=== PATIENT | male | born 1965 | race American Indian/Alaskan Native ===

== ENCOUNTER 2020-08-25 01:53 | Emergency (ER) | payer SELFPAY ==
[2020-08-25] MEDS ORDERED: IBUPROFEN 600 MG TAB PO ONE ×2 (02:56→03:11)
[2020-08-25] MEDS ORDERED: AMOXICILLIN/K CLAV 875/125MG TAB PO ONE (02:56)
[2020-08-25] MEDS ORDERED: RABIES IMMUNE GLOBULIN P/F 300 UNIT/ML INJ 5 ML IM ONE (02:56)
[2020-08-25] MEDS ORDERED: NEOMY 3.5 MG/BACIT 400 UNITS/POLY B 5000 UNITS/GM OINT PACKET TP ONE ×2 (02:56→03:11)
[2020-08-25] MEDS ORDERED: RABIES VACCINE, HUMAN DIPLOID/PF 2.5 UNIT/ML VIAL IM ONE (02:57)
[2020-08-25] MEDS ORDERED: TETANUS,DIPH,PERTUSS(ACELL) VACCINE 0.5 ML SYRINGE IM ONE ×2 (02:58→03:11)
[2020-08-25] MEDS ORDERED: AMOXICILLIN/K CLAV 875/125MG TAB ONE (03:11)
--- NOTE | 2020-08-25 03:23 | Emergency Department Report ---
ED Animal Bite HPI - General Chief Complaint: Animal Bite Stated Complaint: DOG BITE Source: patient Mode of arrival: Ambulatory Limitations: No Limitations - History of Present Illness Initial Comments: Patient is a 55-year-old -[place] male with no past medical history who presents to the ED with complaint of acute onset painful bleeding posterior right thigh puncture wounds after being bitten by unknown dog that he made on the street when walking about 3 hours ago. Patient states that the chef & owner of the dog is unknown and the dog appeared to also be walking around aimlessly in the street. Patient states that he is not up-to-date with all his vaccinations including tetanus. Patient denies numbness and tingling or weakness of right leg, dizziness, syncope, chest pain, shortness of breath, nausea and vomiting, fall, cough or back pain. MD Complaint: animal bite (dog bite), other (posterior right thigh puncture wound from dog bite) -: Sudden, hour(s) (3) Location: other (posterior right thigh puncture wound) Right: Thigh (posterior right thigh puncture wound) Animal: dog Animal Control Notified: No Description: unknown animal, immunizations unknown Mechanism: bite, scratch, contact with mucous membr Pain Description: sharp, constant Severity scale (0 -10): 7 Context: unprovoked Associated Symptoms: bleeding. denies: erythema, discharge from wound, fever, chills, rash, loss of consciousness, cough, headache, diaphoresis, shortness of breath, other Treatments Prior to Arrival: wound dressing(s), irrigation - Related Data Patient Tetanus UTD: No (Given during this visit: Rabies, tetanus) Previous Rx's Medication Instructions Recorded Last Taken Type Amoxicillin/Potassium Clav 1 each PO Q12H #20 tablet 08/25/20 Unknown Rx [Augmentin 875-125 Tablet] Ibuprofen [Motrin] 600 mg PO Q8H PRN #30 tablet 08/25/20 Unknown Rx Allergies Allergy/AdvReac Type Severity Reaction Status Date / Time No Known Allergies Allergy Verified 08/25/20 03:01 ED Review of Systems ROS: Stated complaint: DOG BITE Other details as noted in HPI Constitutional: denies: chills, fever Eyes: denies: eye pain, eye discharge, vision change ENT: denies: ear pain, throat pain Respiratory: denies: cough, shortness of breath, wheezing Cardiovascular: denies: chest pain, palpitations Endocrine: no symptoms reported Gastrointestinal: denies: abdominal pain, nausea, diarrhea Genitourinary: denies: urgency, dysuria Musculoskeletal: arthralgia (posterior right thigh puncture pain due to the bleeding puncture wound from dog bite), myalgia. denies: back pain, joint swelling Skin: other (Bleeding painful puncture wound from dog bite). denies: rash, lesions Neurological: denies: headache, weakness, paresthesias Psychiatric: denies: anxiety, depression Hematological/Lymphatic: denies: easy bleeding, easy bruising ED Past Medical Hx - Past Medical History Previous Medical History?: No Additional medical history: Abdominal Hernia - Surgical History Past Surgical History?: No - Social History Smoking Status: Current Some Day Smoker Substance Use Type: None - Medications Home Medications: Home Medications Medication Instructions Recorded Confirmed Last Taken Type Amoxicillin/Potassium Clav 1 each PO Q12H #20 tablet 08/25/20 Unknown Rx [Augmentin 875-125 Tablet] Ibuprofen [Motrin] 600 mg PO Q8H PRN #30 tablet 08/25/20 Unknown Rx ED Physical Exam - General Limitations: No Limitations General appearance: alert, in no apparent distress - Head Head exam: Present: atraumatic, normocephalic, normal inspection - Eye Eye exam: Present: normal appearance, PERRL, EOMI Pupils: Present: normal accommodation - ENT ENT exam: Present: normal exam, normal orophraynx, mucous membranes moist, TM's normal bilaterally, normal external ear exam - Neck Neck exam: Present: normal inspection, full ROM - Respiratory Respiratory exam: Present: normal lung sounds bilaterally. Absent: respiratory distress, wheezes, rales, rhonchi, chest wall tenderness, accessory muscle use, decreased breath sounds, prolonged expiratory - Cardiovascular Cardiovascular Exam: Present: regular rate, normal rhythm, normal heart sounds. Absent: systolic murmur, diastolic murmur, rubs, gallop - GI/Abdominal GI/Abdominal exam: Present: soft, normal bowel sounds. Absent: tenderness, guarding, rebound, hypoactive bowel sounds, organomegaly - Extremities Exam Extremities exam: Present: normal inspection, full ROM, tenderness (Palpable posterior right thigh tenderness due to bleeding puncture wounds), normal capillary refill. Absent: pedal edema, joint swelling, calf tenderness - Back Exam Back exam: Present: normal inspection, full ROM. Absent: tenderness, CVA tenderness (R), CVA tenderness (L), muscle spasm, paraspinal tenderness, vertebral tenderness - Neurological Exam Neurological exam: Present: alert, oriented X3, CN II-XII intact, normal gait, reflexes normal - Psychiatric Psychiatric exam: Present: normal affect, normal mood - Skin Skin exam: Present: warm, dry, intact, normal color, other (Bleeding multiple puncture wound on posterior right thigh with localized tenderness). Absent: rash ED Course Vital Signs 08/25/20 08/25/20 02:15 03:14 Temperature 98.2 F Pulse Rate 69 Respiratory 16 18 Rate Blood Pressure 172/108 [Right] O2 Sat by Pulse 100 Oximetry - Reevaluation(s) Reevaluation #1: 08/25/20 04:13 Patient was treated for pain in the ED, also received initial oral antibiotics. The wound was cleaned thoroughly with normal saline and Betadine and Neosporin ointment also applied to the wound. The wound was then dressed appropriately and the also received tetanus vaccinations as well as the initial rabies vaccination. On reevaluation, patient's pain is well controlled medications. Patient was advised to follow-up at [facility] for subsequent rabies vaccinations. Patient was advised to return to the ED immediately if symptoms get worse. Critical care attestation.: If time is entered above; I have spent that time in minutes in the direct care of this critically ill patient, excluding procedure time. ED Disposition Clinical Impression: Dog bite of right thigh without complication Qualifiers: Encounter type: initial encounter Qualified Code(s): S71.151A - Open bite, right thigh, initial encounter; W54.0XXA - Bitten by dog, initial encounter Puncture wound of right thigh without foreign body Qualifiers: Encounter type: initial encounter Qualified Code(s): S71.131A - Puncture wound without foreign body, right thigh, initial encounter Disposition: -01 TO HOME OR SELFCARE Is pt being admited?: No Does the pt Need Aspirin: No Condition: Stable Instructions: Animal Bite, Adult, [id number], Puncture Wound, [id number] Additional Instructions: Take medication with food, drink plenty of fluids and follow-up with your primary care physician in 7 to 10 days for reevaluation. Ensure that you follow-up at [facility] for subsequent rabies vaccinations. Return to the ED immediately if symptoms get worse. Prescriptions: Amoxicillin/Potassium Clav [Augmentin 875-125 Tablet] 1 each PO Q12H #20 tablet Ibuprofen [Motrin] 600 mg PO Q8H PRN #30 tablet PRN Reason: Pain Referrals: [facility] [Provider Group] - 7-10 days Time of Disposition: 03:26 Print Language: LAO
[2020-08-25 04:08] VITALS: BP 151/91
== END 2020-08-25 04:45 | disposition home or self-care (01) ==
LOC: ED 01:53
DX: S71.131A Puncture wound without foreign body, right thigh, initial encounter (principal); S71.151A Open bite, right thigh, initial encounter; F17.200 Nicotine dependence, unspecified, uncomplicated; Z79.899 Other long term (current) drug therapy; W54.0XXA Bitten by dog, initial encounter; Y93.89 Activity, other specified; Y92.89 Other specified places as the place of occurrence of the external cause; Y99.8 Other external cause status
CPT/HCPCS: 90375; 90471; 90675; 90715; 96372; 99282; A6250